=== PATIENT | female | born 1970 | race Caucasian/White ===

== ENCOUNTER 2021-01-08 02:34 | Outpatient (CLI) | payer SELFPAY ==
[2021-01-10 09:03] LABS: COVID-19 RT-PCR UVMMC Result Negative (Negative)
== END 2021-01-08 02:35 | disposition home or self-care (01) ==
LOC: LBO 02:35
PROVIDERS: PCP General Practice; Visit Provider Obstetrics & Gynecology Gynecology
DX: Z20.822 Contact with and (suspected) exposure to COVID-19 (principal)
CPT/HCPCS: U0003; U0005

== ENCOUNTER 2021-06-11 10:43 | Outpatient (REF) | payer OTHER, SELFPAY ==
[2021-06-11 13:27] LABS: HCT 41.8 % (36.0-46.0); HGB 13.7 g/dL (11.2-15.7); MCH 29.2 pg (27.0-33.0); MCHC 32.8 % (32.0-36.0); MCV 89.1 fL (80-95); MPV 10.6 fL (8.0-11.0); Platelet Count 276 10^3/uL (130-400); RBC 4.69 10^6/uL (3.93-5.22); RDW 12.1 % (11.7-14.6); RDW-SD 39.5 fL; WBC 6.16 10^3/uL (4.4-10.8)
[2021-06-11 14:10] LABS: Anion Gap 7.7 mmol/L (3-11); BUN 10 mg/dL (7-18); CO2 29.3 mmol/L (21.0-32.0); CREATININE 0.7 mg/dL (0.55-1.02); Calcium 9.3 mg/dL (8.5-10.1); Chloride 109 mmol/L (98-107); Glucose 90 mg/dL (74-106); Potassium 4.7 mmol/L (3.5-5.1); Sodium 146 mmol/L (136-145); TSH (W/Ref FT4) 1.81 uIU/mL (0.36-3.74)
[2021-06-12 22:28] LABS: Calculated LDL 110 mg/dL (<100); Cholesterol 175 mg/dL (<200); HDL Cholesterol 53 mg/dL (40-60); Triglyceride 61 mg/dL (<150)
== END 2021-06-11 10:44 | disposition home or self-care (01) ==
LOC: NCHCN 10:43
PROVIDERS: PCP General Practice; Visit Provider Family Medicine
DX: F41.8 Other specified anxiety disorders (principal); F25.9 Schizoaffective disorder, unspecified; K28.9 Gastrojejunal ulcer, unspecified as acute or chronic, without hemorrhage or perforation; C44.91 Basal cell carcinoma of skin, unspecified
CPT/HCPCS: 80048; 80061; 85027; 84443

== ENCOUNTER 2021-06-25 03:37 | Outpatient (CLI) | payer OTHER, SELFPAY ==
--- NOTE | 2021-06-25 15:20 | DI.RAD_ITS ---
Exam(s) XR KNEE RT 3V AP,LAT,ELIAS EXAM: XR KNEE RT 3V AP,LAT,ELIAS CLINICAL HISTORY: KNEE PAIN, M25.569. TECHNIQUE: 2D digital imaging was performed. COMPARISON: No exams were available for comparison FINDINGS: Is no evidence of fracture nor prominent joint effusion. No obvious degenerative changes nor osseous lesions. Bone density is normal. IMPRESSION: DATA REPOSITORY: RADIATION DOSE DELIVERED:
--- NOTE | 2021-06-25 15:20 | DI.RAD_ITS ---
Exam(s) XR KNEE LT 3V AP,LAT,ELIAS EXAM: XR KNEE LT 3V AP,LAT,ELIAS CLINICAL HISTORY: KNEE PAIN, M25.569. TECHNIQUE: 2D digital imaging was performed. COMPARISON: CR XR KNEE RT 3V AP,LAT,ELIAS from 06/25/2021 FINDINGS: There is no evidence of fracture nor joint effusion. No obvious degenerative changes. Bone density is normal. No significant osseous lesions evident. IMPRESSION: DATA REPOSITORY: RADIATION DOSE DELIVERED:
== END 2021-06-25 03:57 ==
PROVIDERS: PCP General Practice; Visit Provider Family Medicine
DX: M25.561 Pain in right knee (principal); M25.562 Pain in left knee
CPT/HCPCS: 73562

== ENCOUNTER 2021-12-01 10:12 | Emergency (ER) | payer OTHER, SELFPAY ==
[2021-12-01 10:16] VITALS: BP 110/73; PULSE 81; RESP 14; TEMP 36.1; O2SAT 98
--- NOTE | 2021-12-01 10:26 | ED.GENADUL_ITS ---
Discharge Plan Disposition Patient Disposition: HOME Condition: Stable Discharge Details Clinical Impression: Left knee sprain Primary Care Provider: Unknown,Unknown ED Provider: Leslye Ramos Home Meds and New Rx's Prescriptions: Continued multivitamin [Multi-Day] 1 EACH tablet 1 ea PO RF: 0 estradiol 0.01 % (0.1 mg/gram) cream VAGINAL RF: 0 Discharge Instructions Instructions: Knee Sprain (ED) Additional Instructions: She did x-rays show small amount of fluid in the left knee, ischemic her if there is been a small tearing of the ligament or tendon or meniscus. Usually these heal on their own. However if you continue having pain and swelling over the next 2 to 3 weeks please follow-up with orthopedics if needed. The foot x- ray was within normal limits. Rest, ice, compression, elevation. Wear splint as needed for comfort. Please take Tylenol or Ibuprofen with food every 4-6 hours as needed for pain and swelling. Referrals: Deven Chappell MD [ [facility]YS[facility]] - 2 weeks Medical Decision Making 51-year-old female presents to the ER chief complaint of left knee swelling and foot pain. Patient reports that before Pia approximately 12 days ago patient noticed some swelling to her left knee. She reports kneeling down on a hardwood floor plate prior to the swelling. She then reports that she excellently kicked something in the dark with her left foot. She reports some numbness and her toes. No obvious deformity. There is some suprapatellar anterior swelling noted to the left knee. No calf tenderness no redness no warmth. She has been icing it at home has not taken any Tylenol or ibuprofen. She has a past medical history of PTSD, degenerative disc disease. X-ray left knee and foot ordered. Will give Tylenol. COMPARISON: CR XR KNEE LT 3V AP,LAT,ELIAS from 06/25/2021 FINDINGS: BONES: No acute fracture is present. No bony destructive lesion is seen. JOINTS: The knee is normally aligned. There is a small joint effusion. There are mild degenerative changes present. SOFT TISSUE: Normal. IMPRESSION: No acute fracture or dislocation. EXAM: XR FOOT LT COMPLETE CLINICAL HISTORY: Injury, foot pain. TECHNIQUE: 2D digital imaging was performed of the left foot. Three images were obtained. AP, oblique and lateral views were obtained. COMPARISON: No exams were available for comparison FINDINGS: BONES: No acute fracture is present. No bony destructive lesion is seen. There is a well corticated osseous densities adjacent to the base of the 1st metatarsal which appears old. No associated soft tissue swelling is seen. JOINTS: No dislocation present. SOFT TISSUE: Normal. IMPRESSION: No acute fracture or dislocation. Patient given a hinged knee brace instructed on RICE procedures and follow-up with Ortho if no improvement in 2 to 3 weeks. This text was generated using Accountableation system, please disregard any oddities of phrase or misspellings. HPI General Mode of arrival: ambulatory . Date/Time Provider Initiated Documentation: 12/01/21 10:15 . Limitations to Documentation: no limitations . Information obtained by: patient and RN notes reviewed . HPI Narrative: 51-year-old female presents to the ER chief complaint of left knee swelling and foot pain. Patient reports that before Pia approximately 12 days ago patient noticed some swelling to her left knee. She reports kneeling down on a hardwood floor plate prior to the swelling. She then reports that she excellently kicked something in the dark with her left foot. She reports some numbness and her toes. No obvious deformity. There is some suprapatellar anterior swelling noted to the left knee. No calf tenderness no redness no warmth. She has been icing it at home has not taken any Tylenol or ibuprofen. She has a past medical history of PTSD, degenerative disc disease. Related Data Home Medications Medication Instructions Recorded Confirmed multivitamin [Multi-Day] 1 ea PO 01/08/15 03/22/15 estradiol VAGINAL 12/01/21 12/01/21 Allergies Allergy/AdvReac Type Severity Reaction Status Date / Time sulfamethoxazole Allergy Intermediate Hives Unverified 12/01/21 10:21 [From Septra] trimethoprim [From Septra] Allergy Intermediate Hives Unverified 12/01/21 10:21 morphine Allergy rash hives Unverified 12/01/21 10:21 sertraline HCl [From Zoloft] Allergy rash hives Unverified 12/01/21 10:21 General Stated Complaint: Orthopedic ISABELL: 4 Review of Systems All systems reviewed & are unremarkable except as noted in HPI and below PFSH All Active Problems (Updated 12/01/21 @ 11:41 by Leslye Ramos) Left knee sprain (Acute) Medical History Degenerative disc disease, cervical C5,6,7 Headache PTSD (post-traumatic stress disorder) Pt is disabled . Unsure is diability is service related or after discharge from service. Surgical History Augmentation mammoplasty 2007 Cervical Procedure (~2005) laser of cervix section 1991, 1994 Cholecystectomy (~2003) Colonoscopy - IV Sedation (~2003) Family History family members Graves disease Mental disorder Social History Smoking/Tobacco Use Status: Never Smoking risk assessment performed?: Yes Drug use: Never Exam Resp Effort & Inspection: normal respiratory effort and able to speak in complete sentences Cardio Rate: regular rate Rhythm: regular rhythm Heart Sounds: S1 normal and S2 normal Extrem Left lower extremity: normal to inspection, normal capillary refill, knee Details: swelling Location: of the pre-patellar area and knee ligament exam normal; no ecchymosis, no crepitus and no unusual warmth and foot Details: normal capillary refill, normal to inspection and no edema; no unusual warmth, no edema and no abrasions; no cyanosis Course Vital Signs Vital signs: Vital Signs Temperature 36.1 C L 12/01/21 10:16 Pulse 81 12/01/21 10:16 Respiratory Rate 14 12/01/21 10:16 Blood Pressure 110/73 12/01/21 10:16 Pulse Oximetry 98 12/01/21 10:16 Temperature 36.1 C L 12/01/21 10:16 Temperature Source Temporal Artery Scan 12/01/21 10:16 Pulse 81 12/01/21 10:16 Respiratory Rate 14 12/01/21 10:16 Respiratory Effort Non-Labored 12/01/21 10:22 Blood Pressure 110/73 12/01/21 10:16 Blood Pressure Position Supine 12/01/21 10:16 Pulse Oximetry 98 12/01/21 10:16 Oxygen Delivery Method Room Air 12/01/21 10:16 Oxygen Flow Rate 0 12/01/21 10:16 Pain Level 8 12/01/21 10:16 Comment 12/01/21 10:16
[2021-12-01] MEDS: Acetaminophen 500 MG TAB PO (10:34)
--- NOTE | 2021-12-01 11:12 | DI.RAD_ITS ---
Exam(s) XR KNEE LT 3V AP,LAT,ELIAS EXAM: XR KNEE LT 3V AP,LAT,ELIAS CLINICAL HISTORY: Knee swelling. TECHNIQUE: 2D digital imaging was performed of the left knee. Four images were obtained. AP, later al and PA tunnel views were obtained. COMPARISON: CR XR KNEE LT 3V AP,LAT,ELIAS from 06/25/2021 FINDINGS: BONES: No acute fracture is present. No bony destructive lesion is seen. JOINTS: The knee is normally aligned. There is a small joint effusion. There are mild degenerative c hanges present. SOFT TISSUE: Normal. IMPRESSION: No acute fracture or dislocation. DATA REPOSITORY: RADIATION DOSE DELIVERED:
--- NOTE | 2021-12-01 11:12 | DI.RAD_ITS ---
Exam(s) XR FOOT LT COMPLETE EXAM: XR FOOT LT COMPLETE CLINICAL HISTORY: Injury, foot pain. TECHNIQUE: 2D digital imaging was performed of the left foot. Three images were obtained. AP, obli que and lateral views were obtained. COMPARISON: No exams were available for comparison FINDINGS: BONES: No acute fracture is present. No bony destructive lesion is seen. There is a well corticated o sseous densities adjacent to the base of the 1st metatarsal which appears old. No associated soft ti ssue swelling is seen. JOINTS: No dislocation present. SOFT TISSUE: Normal. IMPRESSION: No acute fracture or dislocation. DATA REPOSITORY: RADIATION DOSE DELIVERED:
[2021-12-01 11:56] VITALS: BP 100/72; PULSE 64; RESP 16; TEMP 36.2; O2SAT 99
== END 2021-12-01 12:07 | disposition home or self-care (01) ==
PROVIDERS: Emergency Provider Registered Nurse Emergency
DX: S83.8X2A Sprain of other specified parts of left knee, initial encounter (principal); X58.XXXA Exposure to other specified factors, initial encounter
CPT/HCPCS: 29505; 73562; 99284; 73630; 99283

== ENCOUNTER 2022-04-14 19:26 | Emergency (ER) | payer OTHER, SELFPAY ==
[2022-04-14 19:47] VITALS: BP 120/77; PULSE 62; RESP 14; TEMP 35.4; O2SAT 99
== END 2022-04-14 22:15 ==
PROVIDERS: Emergency Provider Emergency Medicine; PCP Internal Medicine
DX: Z53.21 Procedure and treatment not carried out due to patient leaving prior to being seen by health care provider (principal)

== ENCOUNTER 2024-10-04 14:05 | Emergency (ER) | payer OTHER, SELFPAY ==
[2024-10-04 14:06] VITALS: BP 121/86; PULSE 77; RESP 18; TEMP 37; O2SAT 99
--- NOTE | 2024-10-04 14:15 | DI.RAD_ITS ---
Exam(s) XR CHEST 2V PA LATERAL EXAM: XR CHEST 2V PA LATERAL CLINICAL HISTORY: COVID+, SOB TECHNIQUE: 2D digital imaging was performed. Two views. COMPARISON: CR CHEST 2 VIEWS PA,LAT from 03/22/2015 FINDINGS: HEART: Normal size. Aorta: Not dilated. PULMONARY VASCULATURE: Normal. MEDIASTINUM: Unremarkable. LUNGS: Clear. PLEURAL SPACE: No pleural effusion or pneumothorax. BONE:Unremarkable for age. SOFT TISSUES: Unremarkable. IMPRESSION: No acute abnormality. DATA REPOSITORY: RADIATION DOSE DELIVERED:
--- NOTE | 2024-10-04 14:40 | W.ED.GENAD ---
Discharge Plan Disposition Patient Disposition: Home Condition: Stable Discharge Details Clinical Impression: COVID-19, Rash, skin Primary Care Provider: Ruben Owens ED Provider: Danitza Reagan Home Meds and New Rx's Prescriptions: New nystatin 100,000 unit/gram Cream 1 applic topical BID Qty: 0 0RF No Action multivitamin [Multi-Day] 1 EACH tablet 1 ea PO estradiol 0.01 % (0.1 mg/gram) cream VAGINAL Patient Comments: APPLY 1 GRAM VAGINALLY EVERY 48 HOURS Discharge Instructions Instructions: Fungal Skin Rash (DC), COVID-19 ED Additional Instructions: You were seen in the emergency department today for evaluation of persistent shortness of breath and cough after recent COVID-19 infection, as well as a new skin rash. In our department a full physical examination performed, and had an x-ray that was reassuring. Your vital signs are safe and you are likely experiencing a persistent postviral cough. Your skin rash is concerning for a mild fungal infection, and I provided you with a tube of nystatin ointment. Please apply this twice per day to the affected skin, and you need to follow-up with your primary care provider in the next few days to discuss this symptom and any symptoms that change, worsen, or persist. Your primary care provider may make changes to your medications at that time. You can always return to the emergency department, especially if you have a sudden change or worsening your rash, develop vesicles (fluid-filled blisters) concerning for shingles that go in a line, have worsening shortness of breath, chest pain, or any other symptoms that cause you concern. Thank you for allowing us to be part of your care. HPI General Mode of arrival: ambulatory. Date/Time Provider Initiated Documentation: 10/04/24 14:07. Limitations to Documentation: no limitations. Information obtained by: patient and old records reviewed. HPI Narrative: HPI: This is a 54-year-old female patient presenting for evaluation of shortness of breath after recent COVID infection as well as a new rash. The patient reports that at the end of August she began to feel unwell, with bodyaches, headaches, and noticed a cough and sore throat. She reports that the symptoms have gradually improved, though she does occasionally still feel short of breath, and has a mild cough that is dry. She reports that she has been using conservative management including tea, steam in the shower, etc. to manage the symptoms. She took a home COVID test which was positive, and this prompted her to seek care. She reports that the primary symptom still bothering her is a shortness of breath that has persisted. She called her outpatient providers who informed her that she was unfortunately out of the window for Paxlovid. Additionally, over the weekend the patient noted a new itchy red rash between her breasts. She reports that she has not had any new exposures to potential allergens such as soaps, detergents, lotions, etc. She states that this is a very itchy rash, and she was concerned that this may be shingles that she has had that before. She reports that she has been putting Aquaphor on it but was concerned and wanted this evaluated as well. Exam: Gen: Awake and alert, in no apparent distress HEENT: Non-icteric sclera, conjunctiva noninjected. The patient has small red bumps occasionally on her ear but no vesicular lesions, bilateral TMs are clear and external ear canals without rash or irritation. Neck: Supple, full range of motion without meningismus Lungs: No apparent respiratory distress, normal respiratory effort. Lung sounds clear and equal bilaterally without wheezes, rhonchi, rales CV: Appears well perfused, heart with regular rate and rhythm, no murmurs auscultated Abdomen: Non-distended MSK: Moves 4 extremities without apparent limitation in ROM. No peripheral edema noted Skin: A small number of well-demarcated raised red lesions are appreciated in between the breasts, with no surrounding induration, swelling, or warmth. There is no vesicular component to these lesions, Nikolsky negative. Neuro: Normal Gait, no obvious focal deficits or facial asymmetry. Speaks in full, clear sentences. Psych: Appropriate for situation. MDM: This is a 54-year-old female patient presenting for evaluation of shortness of breath and a red rash. My differential includes but is not limited to ongoing COVID-19 infection, certainly considered pneumonia bronchitis, postviral persistent cough. History and exam is less consistent with reactive airway disease exacerbation, pleural effusion, pulmonary edema, pneumothorax, pulmonary embolism. The patient is reassuringly without ongoing infectious symptoms, fever, or other concerning symptoms to increase my concern for sepsis or bacteremia. I considered intertriginous dedrick infection, contact dermatitis, allergic reaction. I certainly considered shingles, though this rash is not located along any dermatome, is not vesicular. I am reassured by the patient's hemodynamic stability, and we will proceed with chest x-ray to better characterize any pulmonary abnormalities that may be contributing to her ongoing shortness of breath. I will also provide her with some nystatin cream, as fungal infection is highly likely in this region of the body. ED Course: I independently interpreted the patient's chest x-ray, which shows no abnormalities to account for symptoms, and specifically is without evidence of pneumonia, fluid overload, etc. On reassessment the patient remains hemodynamically appropriate, oxygenating well and not tachycardic or febrile. Nystatin cream was applied to her rash and she will continue to use this 2 times per day until she can be reevaluated by her primary care provider. At this time, the patient has had a full medical evaluation and is safe for discharge to home. They are hemodynamically stable, ambulatory, and tolerating PO. They are understanding of the follow-up plan and return precautions. They left our facility without incident. Danitza Reagan MD Related Data Home Medications ?Medication ?Instructions ?Recorded ?Confirmed multivitamin (Multi-Day tablet) 1 ea PO 01/08/15 03/22/15 estradiol 0.01% (0.1 mg/gram) vaginal 12/01/21 12/01/21 vaginal cream nystatin 100,000 unit/gram topical 1 applic topical BID #0 grams 10/04/24 cream Previous Rx's ?Medication ?Instructions ?Recorded nystatin 100,000 unit/gram topical 1 applic topical BID #0 grams 10/04/24 cream Allergies Allergy/AdvReac Type Severity Reaction Status Date / Time sulfamethoxazole (From Allergy Intermediate Hives Unverified 04/14/22 19:52 ) trimethoprim (From Septra) Allergy Intermediate Hives Unverified 04/14/22 19:52 morphine Allergy rash hives Unverified 04/14/22 19:52 sertraline HCl (From Zoloft) Allergy rash hives Unverified 04/14/22 19:52 General Stated Complaint: GenMedical ISABELL: 3 Course Vital Signs Vital signs: Vital Signs Temperature 37.0 C 10/04/24 14:06 Pulse 77 10/04/24 14:06 Respiratory Rate 18 10/04/24 14:06 Blood Pressure 121/86 10/04/24 14:06 Pulse Oximetry 99 10/04/24 14:06 Temperature 37.0 C 10/04/24 14:06 Temperature Source Temporal Artery Scan 10/04/24 14:06 Pulse 77 10/04/24 14:06 Respiratory Rate 18 10/04/24 14:06 Blood Pressure 121/86 10/04/24 14:06 Pulse Oximetry 99 10/04/24 14:06 Oxygen Delivery Method Room Air 10/04/24 14:06 Oxygen Flow Rate 0 10/04/24 14:06 Pain Level 0 10/04/24 14:06 Medical Decision Making Quality:SDOH Health Related Social Needs: No Data to Display PFSH All Active Problems (Updated 10/04/24 @ 15:02 by Danitza Reagan MD) Rash, skin (Acute) COVID-19 (Acute) Medical History Degenerative disc disease, cervical C5,6,7 Headache PTSD (post-traumatic stress disorder) Pt is disabled . Unsure is diability is service related or after discharge from service. Surgical History Augmentation mammoplasty 2007 Cervical Procedure (~2005) laser of cervix section 1991, 1994 Cholecystectomy (~2003) Colonoscopy - IV Sedation (~2003) Family History family members Graves disease Mental disorder Social History Smoking/Tobacco Use Status: Never Smoking risk assessment performed?: Yes Alcohol Intake: never Drug use: Never Substance use type: does not use Do you feel safe at home: Yes Do you feel safe in your relationship?: Yes
[2024-10-04] MEDS: Nystatin CREAM 15 GM TUBE TP (14:52)
[2024-10-04 20:03] VITALS: BP 121/86; PULSE 77; RESP 18; RESP 20; TEMP 37; O2SAT 98; O2SAT 99
== END 2024-10-04 15:58 | disposition home or self-care (01) ==
PROVIDERS: Emergency Provider Emergency Medicine; PCP Internal Medicine
DX: R21 Rash and other nonspecific skin eruption (principal); U07.1 COVID-19
CPT/HCPCS: 99283; 71046; J3490